=== PATIENT | female | born 1980 | race American Indian/Alaskan Native ===

== ENCOUNTER 2017-05-29 15:27 | Emergency (ER) | payer OTHER, MEDICAID ==
[2017-05-29 15:38] VITALS: RESP 16; TEMP 98.6; O2SAT 100
[2017-05-29] MEDS ORDERED: Dexamethasone 4 mg/1 ml IM STA (16:05)
--- NOTE | 2017-05-29 16:49 | RAD ---
HISTORY: chest pain COMPARISON: The purpuric usually deeper TECHNIQUE: Chest PA and lateral FINDINGS: LUNGS: No active pulmonary disease. PLEURA: No significant pleural effusion identified. No pneumothorax apparent. CARDIOVASCULAR: Normal. OSSEOUS STRUCTURES: No significant abnormalities. VISUALIZED UPPER ABDOMEN: Normal. OTHER FINDINGS: None. IMPRESSION: No active disease.
--- NOTE | 2017-05-29 17:39 | C.PDOC ---
History Of Present Illness 37 year old female presents to the ED for evaluation of two different complaints. Patient complains of lower back pain which developed over the past week. Patient notes the back pain may be caused by heavy lifting. Patient went to see an orthopedist who prescribed her Meloxicam 3 days ago. Since then, patient has been experiencing a "tightening" sensation in her chest that is associated with pleuritic pain. Patient denies fever, chills, abdominal pain, nausea, vomiting, urinary/bowel incontinence, upper/lower extremity numbness/ weakness, or direct trauma/injury to the affected area. Time Seen by Provider: 05/29/17 15:42 Chief Complaint (Nursing): Chest Pain History Per: Patient History/Exam Limitations: no limitations Onset/Duration Of Symptoms: Days (3), Other (1 week) Current Symptoms Are (Timing): Still Present Quality: Tightness, "Pain" Associated Symptoms: denies: Nausea Additional History Per: Patient Past Medical History Reviewed: Historical Data, Nursing Documentation, Vital Signs Vital Signs: Last Vital Signs Temp 98.6 F 05/29/17 17:55 Pulse 82 05/29/17 17:55 Resp 16 05/29/17 17:55 BP 116/68 05/29/17 17:55 Pulse Ox 100 05/29/17 17:58 - Medical History PMH: No Chronic Diseases Surgical History: Tonsillectomy Family History: States: Unknown Family Hx - Social History Hx Tobacco Use: No Hx Alcohol Use: No Hx Substance Use: No - Immunization History Hx Tetanus Toxoid Vaccination: No Hx Influenza Vaccination: No Hx Pneumococcal Vaccination: No Review Of Systems Constitutional: Negative for: Fever Cardiovascular: Positive for: Other (chest tightness and pleuritic pain ) Gastrointestinal: Negative for: Nausea, Vomiting, Abdominal Pain Genitourinary: Negative for: Incontinence Musculoskeletal: Positive for: Back Pain (lower ) Neurological: Negative for: Weakness, Numbness Physical Exam - Physical Exam Appears: Non-toxic, No Acute Distress Skin: Normal Color, Warm, Dry Head: Atraumatic, Normacephalic Eye(s): bilateral: Normal Inspection Oral Mucosa: Moist Neck: Supple Chest: Symmetrical, No Deformity, Tenderness (moderate, to chest wall ) Cardiovascular: Rhythm Regular, No Murmur Respiratory: Normal Breath Sounds, No Rales, No Rhonchi, No Wheezing Back: Paraspinal Tenderness (moderate, lumbar ) Extremity: Normal ROM, Capillary Refill (less than 2 seconds ) Neurological/Psych: Oriented x3, Normal Speech, Normal Cognition, Normal Motor, Normal Sensation Gait: Steady ED Course And Treatment ECG: Interpreted By Me ECG Rhythm: Sinus Rhythm Rate From EC O2 Sat by Pulse Oximetry: 100 (on RA) Pulse Ox Interpretation: Normal - Other Rad CXR X-Ray: Interpreted by Me, Viewed By Me, Read By Radiologist Interpretation: HISTORY: chest pain. COMPARISON: The purpuric usually deeper. TECHNIQUE: Chest PA and lateral. FINDINGS: LUNGS: No active pulmonary disease. PLEURA: No significant pleural effusion identified. No pneumothorax apparent. CARDIOVASCULAR: Normal. OSSEOUS STRUCTURES: No significant abnormalities. VISUALIZED UPPER ABDOMEN: Normal. OTHER FINDINGS: None. IMPRESSION: No active disease. Reassessment Condition: Improved Medical Decision Making Medical Decision Making: Progress: CXR and EKG ordered and reviewed. CXR results are unremarkable. Patient received Decadron IM, Toradol IM, and Valium PO. On reassessment, patient is resting comfortably, showing no signs of distress and reports an improvement in her symptoms. Patient is ambulatory in the ED and is stable for discharge. Patient is advised to follow up with her PMD within 1- 2 days for further evaluation. Disposition - Disposition Referrals: Osmany Collins MD [Non-Staff] - Disposition: HOME/ ROUTINE Disposition Time: 17:45 Condition: GOOD Additional Instructions: Follow up with the medical doctor within 1-2 days. Return if worsened. Prescriptions: diaZEpam [Valium] 5 mg PO TID #21 tab Naproxen [Naprosyn] 500 mg PO BID #20 tab Instructions: Costochondritis (ED) Forms: [facility] (Estonian), Work Excuse - POA Present On Arrival: None - Clinical Impression Clinical Impression: Costochondritis, Back pain - PA / SPINE NURSE / Resident Statement MD/DO has reviewed & agrees with the documentation as recorded. - Scribe Statement The provider has reviewed the documentation as recorded by the Scribe (Nadiya Gutierrez) All medical record entries made by the Scribe were at my direction and personally dictated by me. I have reviewed the chart and agree that the record accurately reflects my personal performance of the history, physical exam, medical decision making, and the department course for this patient. I have also personally directed, reviewed, and agree with the discharge instructions and disposition.
[2017-05-29 17:55] VITALS: BP 116/68; PULSE 82
--- NOTE | 2017-05-31 18:30 | CARD ---
APPROVED REPORT EKG Measurement Heart [id number] <Conclusion> Normal sinus rhythm Normal ECG
== END 2017-05-29 17:55 | disposition home or self-care (01) ==
LOC: C.ER 15:27
DX: M94.0 Chondrocostal junction syndrome [Tietze] (principal); M54.9 Dorsalgia, unspecified
CPT/HCPCS: 71020; 96372; 99285; J1100